=== PATIENT | male | born 1965 | race Caucasian/White ===

== ENCOUNTER → 2018-06-19 15:20 | Outpatient (CLI) | payer BC, SELFPAY ==
[2018-06-19 18:21] LABS: Anion Gap 9 (5-15); BUN 17 mg/dL (7-18); Calcium,Total 8.9 mg/dL (8.5-10.1); Chloride 101 mmol/L (98-107); Cholesterol 184 mg/dL (200); Creatinine, Serum 0.95 mg/dL (0.70-1.30); EST Glomerular Filtration Rate 89 mL/min (>60); Est Glom Filt Rate - Afr Amer 107 mL/min (>60); Glucose 94 mg/dL (74-106); High Density Lipoprotein 57 mg/dL; PSA,Total - Annual Screen 2.68 ng/mL (0.00-4.00); Sodium Level 139 mmol/L (136-145); Triglycerides 100 mg/dL; Very Low Density Lipoprotein 20 mg/dL (5-40)
== END ==
PROVIDERS: Family Provider Family Medicine; PCP Family Medicine; Visit Provider Family Medicine
DX: Z00.00 Encounter for general adult medical examination without abnormal findings (principal)
CPT/HCPCS: 36415; 80048; 80061; 84153; G0103

== ENCOUNTER → 2018-07-27 14:44 | Outpatient (CLI) | payer BC, SELFPAY ==
--- NOTE | 2018-07-27 11:45 | COLBX_PTH ---
PATIENT: RADHA HENNESSY LOC: [facility]IL U#:[id number] AGE/SX: 59/M ROOM: RE07/27/[address]: Dr. Zane Ng MD : 1965 BED: DIS: SPEC #: [id number] RECD: 07/27/18 14:40 STATUS: MERCEDEZ REYa #: [id number] LAKISHA: 07/27/18 11:[address]: Zane Ng DEPT: SURGICAL PATHOLOGY RECD BY: Melvin Bob ENTERED: 07/27/18 14:48 SP TYPE: COLON BX OTHR DR: Dr. Kelly Kerr MD [facility] Tissues: COLON BIOPSY Procedures: Surgery Specimen Level IV HEADER OPERATION: Colonoscopy with biopsy PRE-OP DIAGNOSIS: Screening / polyp TISSUE SUBMITTED: Hepatic flexure polyp biopsy, rule out adenoma MICROSCOPIC DIAGNOSIS Colonic polyp at hepatic flexure, biopsy: Polypoid fragments of benign colonic mucosa. Focal prominent benign appearing lymphoid nodule. See comment. AM:althea 07/28/18 COMMENT Neither hyperplastic nor adenomatous change is identified. Clinical correlation is suggested. MICROSCOPIC DESCRIPTION Slides are reviewed. GROSS DESCRIPTION Received in fixative is one container labeled with the patient's name and designated hepatic flexure. The specimen consists of multiple irregular fragments of light goodman soft tissue that in aggregate measure 0.7 x 0.2 x 0.1 cm. The specimen is totally submitted in one cassette. / SJ:althea 07/27/18 TC:5 CPT: 26047
== END ==
PROVIDERS: Family Provider Family Medicine; PCP Family Medicine; Referring Provider Internal Medicine Gastroenterology; Visit Provider Internal Medicine Gastroenterology
DX: Z12.11 Encounter for screening for malignant neoplasm of colon (principal); K63.5 Polyp of colon
CPT/HCPCS: 88305

== ENCOUNTER 2020-08-25 09:00 | Outpatient (RCR) | payer BC, SELFPAY ==
[2020-08-25] MEDS: COVID-19 VACC, MRNA(PFIZER)/PF 30 MCG/0.3 ML SYRINGE IM (16:00)
[2020-09-15] MEDS: COVID-19 VACC, MRNA(PFIZER)/PF 30 MCG/0.3 ML SYRINGE IM (15:22)
== END 2020-08-25 23:59 ==
LOC: IMMUN 09:00
PROVIDERS: PCP Family Medicine; Visit Provider Family Medicine
DX: Z23 Encounter for immunization (principal)
CPT/HCPCS: 0001A; 0002A; 91300

== ENCOUNTER → 2021-05-30 14:46 | Outpatient (CLI) | payer BC, SELFPAY ==
[2021-05-30 18:17] LABS: PSA,Total - Annual Screen 2.82 ng/mL (0.00-4.00)
== END ==
PROVIDERS: PCP Family Medicine; Referring Provider Family Medicine; Visit Provider Family Medicine
DX: Z00.00 Encounter for general adult medical examination without abnormal findings (principal); Z12.5 Encounter for screening for malignant neoplasm of prostate
CPT/HCPCS: 36415; 84153; G0103

== ENCOUNTER → 2021-06-05 08:34 | Outpatient (CLI) | payer BC, SELFPAY ==
--- NOTE | 2021-06-05 08:43 | RAD_ITS ---
STUDY: X-RAY - ESOPHAGUS (BARIUM SWALLOW) WITH FLUOROSCOPY REASON FOR EXAM: Male, 55 years old. DYSPHAGIA TECHNIQUE: 10 view(s) of the esophagus were obtained following swallowing of barium. FLUOROSCOPY TIME (if supplied): (37 seconds) minutes/seconds COMPARISON: None. FINDINGS: There is no demonstrated esophageal foreign body. There is no demonstrated stricture or mucosal abnormality. Circumferential narrowing at the gastroesophageal junction. The patient ingested a 12 mm tablet of barium. The tablet described at the gastroesophageal junction. Normal visualized aortic arch and descending thoracic aorta. Normal visualized pulmonary parenchyma. Normal visualized osseous structures of the thorax. RAD/Esophagus Single Contrast IMPRESSION: Circumferential narrowing at the gastroesophageal junction trapping of the 12 mm tablet of barium at that site. Correlation with endoscopy is recommended. Electronically Signed: Renard Riddle MD at 9:26 EST , Service support ,
== END ==
PROVIDERS: PCP Family Medicine; Referring Provider Family Medicine; Visit Provider Family Medicine
DX: R13.10 Dysphagia, unspecified (principal)
CPT/HCPCS: 74220

== ENCOUNTER → 2022-06-21 | Outpatient (CLI) | payer OTHER, SELFPAY ==
[2022-06-21 12:42] LABS: PSA,Total- Diagnostic 2.76 ng/mL (0.0-4.0)
== END | disposition home or self-care (01) ==
LOC: MFPLAB 10:36
PROVIDERS: PCP Family Medicine; Visit Provider Family Medicine
DX: Z00.00 Encounter for general adult medical examination without abnormal findings (principal)
CPT/HCPCS: 36415; 84153

== ENCOUNTER → 2023-08-08 | Outpatient (CLI) | payer OTHER, SELFPAY ==
[2023-08-08 12:37] LABS: Anion Gap 3 (5-15); BUN 12 mg/dL (7-18); BUN/Creat Ratio 14.3 RATIO (10-20); Calcium,Total 9.3 mg/dL (8.5-10.1); Chloride 105 mmol/L (98-107); Cholesterol 184 mg/dL (200); Creatinine, Serum 0.84 mg/dL (0.70-1.30); EST Glomerular Filtration Rate 100 mL/min (>60); Est Glom Filt Rate - Afr Amer 120 mL/min (>60); Glucose 108 mg/dL (74-106); High Density Lipoprotein 53 mg/dL; PSA,Total- Diagnostic 3.23 ng/mL (0.0-4.0); Potassium 4.4 mmol/L (3.5-5.1); Sodium Level 139 mmol/L (136-145); Triglycerides 94 mg/dL; Very Low Density Lipoprotein 19 mg/dL (5-40)
== END | disposition home or self-care (01) ==
LOC: MFPLAB 10:28
PROVIDERS: PCP Family Medicine; Visit Provider Family Medicine
DX: Z00.00 Encounter for general adult medical examination without abnormal findings (principal)
CPT/HCPCS: 36415; 80048; 80061; 84153

== ENCOUNTER 2023-12-04 00:48 | Inpatient (IN) | payer OTHER, SELFPAY ==
[2023-12-04] VITALS (15 sets, daily range): BP systolic 98–135; BP diastolic 58–79; PULSE 57–78; RESP 14–18; TEMP 36.2–36.9; O2SAT 95–99; BMI 24.8; BMI 24.1
[2023-12-04 01:02] LABS: Absolute Lymphocyte Count 1.11 X10^3/uL (0.83-4.51); Absolute Neutrophil Count 5.8 X10^3/uL (2.0-7.7); Basophil# 0.06 X10^3/uL; Basophil% 0.8 % (0-1); Eosinophil# 0.05 X10^3/uL; Eosinophils% 0.7 % (0-5); Hematocrit 40.5 % (40-54); Hemoglobin 13.8 g/dL (13.0-16.5); Lymphocyte # 1.11 X10^3/ul (0.83-4.51); Lymphocyte % 14.8 % (19-41); Mean Corp Hgb Conc 34.1 g/dL (32-36); Mean Corpuscular Hgb 29.6 pg (27.0-32.0); Mean Corpuscular Volume 86.7 fL (80-94); Mean Platelet Vol. 9.2 fl (6.2-12.0); Monocyte# 0.46 X10^3/uL; Monocyte% 6.1 % (0-10); NRBC Flagged by Analyzer 0 % (0-5); Neutrophil # 5.77 X10^3/uL (2.7-7.7); Neutrophil % 77.2 % (47-70); Platelet Count 239 K/mm3 (150-450); RBC Distribution Width CV 13.2 % (11.6-14.6); RBC Distribution Width SD 41.2 fl (35.1-43.9); Red Blood Count 4.67 M/mm3 (4.6-6.2); White Blood Count 7.5 K/mm3 (4.4-11.0)
[2023-12-04 01:24] LABS: ALB/GLOB Ratio 1.1 RATIO (0.9-2.4); AST(SGOT) 29 U/L (15-37); Alanine Aminotransfer ALT/SGPT 45 U/L (16-61); Albumin, Serum 3.9 g/dL (3.2-5.0); Alkaline Phosphatase 89 U/L (45-117); Anion Gap 5 (5-15); BUN 16 mg/dL (7-18); BUN/Creat Ratio 16.3 RATIO (10-20); Calcium,Total 8.8 mg/dL (8.5-10.1); Chloride 105 mmol/L (98-107); Creatinine, Serum 0.98 mg/dL (0.70-1.30); EST Glomerular Filtration Rate 83 mL/min (>60); Est Glom Filt Rate - Afr Amer 101 mL/min (>60); Estimated Creatinine Clearance 84.84 ml/min; Globulin 3.4 g/dL (2.2-4.2); Glucose 131 mg/dL (74-106); Potassium 3.3 mmol/L (3.5-5.1); Protein, Total 7.3 g/dL (6.4-8.2); Sodium Level 137 mmol/L (136-145)
--- NOTE | 2023-12-04 01:29 | CT_ITS ---
EXAM: CT ABDOMEN AND PELVIS WITH INTRAVENOUS CONTRAST CLINICAL INDICATION: DIFFUSE ABD PAIN TECHNIQUE: Helically acquired images were obtained of the abdomen and pelvis with intravenous contrast. This CT exam was performed using one or more of the following dose reduction techniques: automated exposure control, adjustment of the mA and/or kV according to patient size, and/or use of iterative reconstruction technique. CONTRAST: 100 cc of Isovue-370 IV. RADIATION DOSE: CTDIvol = 13.20 mGy, DLP = 933.79 mGy-cm COMPARISON: No relevant prior studies available. FINDINGS: LOWER THORAX: Unremarkable. Lung bases are clear. No cardiomegaly. No significant pericardial effusion. ABDOMEN: LIVER: Unremarkable. Homogeneous. No focal mass. GALLBLADDER AND BILE DUCTS: Unremarkable. No calcified gallstones. No gallbladder distention or wall edema. No intra- or extrahepatic biliary ductal dilation. PANCREAS: Unremarkable. No focal cystic or solid mass. SPLEEN: Unremarkable. Normal size without focal cystic or solid mass. ADRENALS: Unremarkable. No nodules. KIDNEYS AND URETERS: Unremarkable. Normal renal size and position. No hydronephrosis. STOMACH AND BOWEL: Multiple dilated mid small bowel loops measuring up to 2.8 cm in diameter. Distal small bowel loops are collapsed. The point of transition is in the lower abdomen just to the left of midline best seen on axial images 58 through 61 of series 2 and coronal images 49 through 57 of series 601 where there is a kink in the small bowel. There is some adjacent cha crossing of vessels in the mesentery. Scattered diverticula without diverticulitis. PELVIS: APPENDIX: No evidence of acute appendicitis. BLADDER: Unremarkable. REPRODUCTIVE: Unremarkable as visualized. No mass. ABDOMEN and PELVIS: INTRAPERITONEAL SPACE: See above. BONES/JOINTS: Unremarkable. No suspicious lytic or blastic abnormality. SOFT TISSUES: Unremarkable. No discrete abdominal or pelvic wall hernia. VASCULATURE: See above. LYMPH NODES: Unremarkable. No enlarged lymph nodes. CT/Abdomen/Pelvis W IV Cont ONLY IMPRESSION: 1. Small bowel obstruction that may be due to adhesions or internal hernia. 2. Scattered diverticula without diverticulitis. Electronically Signed: Ok Trejo MD at 2:55 EDT ,
[2023-12-04] MEDS: Ondansetron 4 MG/2 ML Vial IV ×2 (01:32→08:32)
[2023-12-04] MEDS: Morphine 4 MG/ML Syringe IV (01:34)
[2023-12-04] MEDS: 0.9% Normal Saline (1000mL) 1,000 ML 999 ML IV (01:44)
[2023-12-04] MEDS: Ketorolac 30 MG/ML Syringe IV (02:21)
[2023-12-04 02:34] LABS: Bacteria 0 SEEN /hpf (None Seen); Mucous, Urine 0 SEEN /hpf (<or=2+); Red Blood Cells-Urine 0 SEEN /hpf (0-5)
[2023-12-04 02:36] LABS: Color, Urine Yellow (Yellow); Glucose, Dipstick Normal (Normal); Ketone-Dipstick 15 mg/dl (Negative); Leukocyte Esterase-Dipstick 25 /ul (Negative); Nitrite-Dipstick Negative (Negative); Occult Blood-Urine Negative /ul (Negative); Protein-Dipstick Negative (Negative); Specific Gravity, Urine 1.005 (1.002-1.030); Urine Bilirubin Dipstick Negative (Negative); Urine Clarity Clear (Clear); Urine Urobilinogen Normal (Normal)
[2023-12-04 02:46] LABS: White Blood Cells 0-5 SEEN /hpf (0-5)
[2023-12-04 02:47] LABS: Squamous Epithelial Cells - UA 0-5 SEEN /hpf (0-5)
[2023-12-04] MEDS: HYDROmorphone 1 MG/ML Syringe IV (03:13)
[2023-12-04 04:17] LABS: Lactic Acid 0.8 mmol/L (0.4-1.9)
--- NOTE | 2023-12-04 04:44 | EDS_ITS ---
HPI History of Present Illness Chief Complaint: Abd Pain Informant: patient and spouse/S.O. Narrative Narrative: Patient is a 58-year-old male with past medical history of GERD with stricture. He states that he ate dinner this evening and then a few hours later began with generalized abdominal discomfort. He states this occurred around 9 PM. He states he has been nauseous but without any true bouts of vomiting. He states that there has been no associated loose stool or diarrhea and he denies any known sick contacts. He states that he is taken [id number] medication and given the symptoms time to resolve but they have not done so and therefore he comes in for evaluation [facility] Medical History (Updated 12/04/23 @ 06:[address] Kristopher Mccauley, DO) GERD (gastroesophageal reflux disease) Shingles Home Medications ?Medication ?Instructions ?Recorded ?Last Taken ?Type pantoprazole 40 mg tablet,delayed 40 mg PO DAILY 12/04/23 Unknown History release Allergy/AdvReac Type Severity Reaction Status Date / Time Penicillins Allergy Mild Unknown Verified 12/04/23 00:51 Surgical History no surgical history Social History Smoking Status: Never smoker ROS ROS ED Constitutional Constitutional ED: Denies chills or fever(s) ENT ENT ED: Denies sore throat Cardiovascular Cardiovascular: Denies chest pain Respiratory/Chest Respiratory/Chest: Denies cough or dyspnea Gastrointestinal Gastrointestinal: Reports abdominal pain, constipation and nausea; Denies diarrhea or vomiting Genitourinary Genitourinary ED: Denies dysuria or hematuria Musculoskeletal Musculoskeletal: Reports back pain; Denies myalgias Integumentary Denies rash Neurologic Neurologic: Denies headache(s) Hematologic/Lymphatic Hematologic/Lymphatic: Denies easy bleeding or easy bruising EXAM Physical Exam Const Vital Signs: 12/04/23 00:49 12/04/23 02:48 12/04/23 04:00 Temperature 97.6 F L Temperature Source Temporal Pulse Rate 74 78 78 Respiratory Rate 18 18 16 Blood Pressure 135/79 H 113/67 119/75 Blood Pressure Mean 97 82 89 Pulse Ox 95 97 98 Oxygen Delivery Method Room Air Room Air Room Air Positive well nourished and well developed General Appearance ED: well developed; Negative for pallor HEENT HEENT Narrative: No tongue or lip swelling no oral lesions no airway edema or compromise Eyes PERRL and EOMs intact bilaterally General Eye ED: Negative for scleral icterus Neck supple Chest Wall palpation of chest normal Resp normal respiratory effort and clear to auscultation bilaterally Cardio regular rate and regular rhythm Rate: other Other Details: Heart is regular rate and rhythm without murmurs rubs or gallops Radial and carotid pulses are equal and symmetric GI non-distended GI Narrative: Abdomen is soft and nondistended with hypoactive bowel sounds There is diffuse tenderness to palpation No pulsatile mass or peritoneal signs Auscultation: hypoactive bowel sounds Palpation: soft Back/Spine Back/Spine Narrative: Positive left CVA pain noted Extremity normal to inspection Neuro oriented x3, CN's II-XII intact bilaterally and no sensory deficits noted Sensorium / Orientation: alert Motor Exam: strength 5/5 throughout Psych mental status grossly normal Skin no rashes or lesions noted General Skin Exam: Negative for jaundice or pallor MDM MDM MDM Narrative Medical decision making narrative: Patient arrived to the ER with stable vitals. He had generalized abdominal discomfort with nausea without bouts of vomiting. He stated he was also constipated and denied any known sick contacts. Differential diagnosis is for kidney stone versus biliary colic versus acute cholecystitis versus pancreatitis versus colitis versus small bowel obstruction. Based on the diffuse nature of his pain I elected to perform a CT scan of his abdomen pelvis as well as basic lab. Labs revealed no clinically significant findings but CT scan did show c hanges consistent with a small bowel obstruction. Patient's only risk factor is previous surgical history of a hysterectomy repaired when he was just a young child. This diagnosis all correlates with the fact that he states he has been constipated and not passing any flatus. Secondary to the SBO read General surgery was contacted who evaluated the patient in the ER and they agree about admission at this time for continued treatment but as he is not having bouts of vomiting and he is not distended there is no need for an NG tube History & Record Review Discussion w/independent historian: Patient and Family Lab Data Attestation: I reviewed the patient's lab results. Labs: Laboratory Results - last 24 hr 12/04/23 12/04/23 12/04/23 00:55 02:28 03:38 WBC 7.5 RBC 4.67 Hgb 13.8 Hct 40.5 MCV 86.7 MCH 29.6 MCHC 34.1 RDW Std Deviation 41.2 RDW Coeff of [place] 13.2 Plt Count 239 MPV 9.2 Immature Gran % (Auto) 0.400 Neut % (Auto) 77.2 H Lymph % (Auto) 14.8 L [place] % (Auto) 6.1 Eos % (Auto) 0.7 Baso % (Auto) 0.8 Absolute Neuts (auto) 5.8 Absolute Lymphs (auto) 1.11 Nucleated RBC % 0 Sodium 137 Potassium 3.3 L Chloride 105 Carbon Dioxide 27.0 Anion Gap 5 BUN 16 Creatinine 0.98 Estim Creat Clear Calc 84.84 Est GFR (MDRD) Af Amer 101 Est GFR (MDRD) Non-Af 83 BUN/Creatinine Ratio 16.3 Glucose 131 H Lactic Acid 0.8 Calcium 8.8 Total Bilirubin 0.30 AST 29 ALT 45 Alkaline Phosphatase 89 Total Protein 7.3 Albumin 3.9 Globulin 3.4 Albumin/Globulin Ratio 1.1 Urine Color Yellow Urine Clarity Clear Urine pH 7.0 Ur Specific [place] 1.005 Urine Protein Negative Urine Glucose (UA) Normal Urine Ketones 15 H Urine Occult Blood Negative Urine Nitrite Negative Urine Bilirubin Negative Urine Urobilinogen Normal Ur Leukocyte Esterase 25 H Urine RBC 0 SEEN Urine WBC 0-5 SEEN Ur Squamous Epith Cells 0-5 SEEN Urine Bacteria 0 SEEN Urine Mucus 0 SEEN Radiography Diagnostic Testing: Clinical Impression(s) from Imaging Studies Abdomen/Pelvis CT 12/04/23 01:29 IMPRESSION: 1. Small bowel obstruction that may be due to adhesions or internal hernia. 2. Scattered diverticula without diverticulitis. Electronically Signed: Ok Trejo MD at 2:55 EDT , Management Discussion w/another healthcare provider: Workforce Development Assistant Discharge Plan Dx/Rx/DC Orders Clinical Impression: SBO (small bowel obstruction), Gastroesophageal reflux disease, History of esophageal stricture Disposition Disposition: Acute Care Hospital [facility]
--- NOTE | 2023-12-04 05:43 | HP.PCM_ITS ---
HPI - General General Date of Admission: 12/04/23 Chief Complaint: Acute onset abdominal pain HPI Narrative RADHA HENNESSY, is a 58 M who presents to [facility] with his due to complaints of sudden onset abdominal pain that was diffuse in his distribution and began just about 9 PM last evening. Patient denies any distention, nausea, or vomiting. He does remark that he has been doing a lot of burping and actually attempted to vomit to see if this would alleviate his pain. He denies any previous experience of these symptoms. He shares that he had a normal dinner about 530?eating leftovers for the third night in a row of chicken and pasta. He also states that he had a evening time snack with ice cream at 8 PM. Patient's ER workup notable for laboratories that are relatively unremarkable. CT imaging of the abdomen pelvis, however, as read by radiology is concerning for small bowel obstruction secondary to a transition point in the left lower quadrant that seem to be related to either adhesions or an internal hernia. They also noted crisscrossing of mesenteric vessels. Lactic acid was obtained following this read which was within normal limits at 0.8. By the time I arrived to patient's room he states that his pain is largely gone and the pain medication has been effective. He does comment that he is unsure the last time he passed gas and does not seem to be having bowel function at present. Patient is reasonably healthy, but does state that he had a diagnosis of a shingles outbreak earlier this month. The outbreak occurred over his abdomen and extended onto his back. He was prescribed both prednisone and acyclovir. He states that the symptoms from this outbreak have not been present for the last 3 to 4 days. Patient's only past surgical history included a hernia repair as a young child. He is unable to even give the location for that hernia repair given its remote nature. [facility] Medical History (Updated 12/04/23 @ 04:[address] Kristopher Mccauley, DO) GERD (gastroesophageal reflux disease) Shingles Home Medications ?Medication ?Instructions ?Recorded ?Last Taken ?Type pantoprazole 40 mg tablet,delayed 40 mg PO DAILY 12/04/23 Unknown History release Allergy/AdvReac Type Severity Reaction Status Date / Time Penicillins Allergy Mild Unknown Verified 12/04/23 00:51 Surgical History no surgical history Social History Smoking Status: Never smoker ROS Constitutional Constitutional: Denies anorexia, chills, fever(s) or weight loss Gastrointestinal Gastrointestinal: Reports abdominal pain; Denies nausea or vomiting Vital Signs Vital Signs Vital Signs: 12/04/23 00:49 12/04/23 02:48 12/04/23 04:00 Temperature 97.6 F L Temperature Source Temporal Pulse Rate 74 78 78 Respiratory Rate 18 18 16 Blood Pressure 135/79 H 113/67 119/75 Blood Pressure Mean 97 82 89 Pulse Ox 95 97 98 Oxygen Delivery Method Room Air Room Air Room Air 12/04/23 05:38 Temperature 98.4 F Temperature Source Pulse Rate 74 Respiratory Rate 16 Blood Pressure 118/79 Blood Pressure Mean 92 Pulse Ox 98 Oxygen Delivery Method Weight Weight: 173 lb 4.533 oz Body Mass Index (BMI) 24.8 Physical Exam Const alert, oriented x3 and no apparent distress Constitutional Narrative: Patient appears relaxed General Appearance: cooperative Resp normal respiratory effort GI GI Narrative: No clearly visible scars, nondistended, soft, mild discomfort elicited with palpation of the left lower quadrant?otherwise patient denies any discomfort or tenderness Results Lab / Micro Data 12/04/23 00:55 12/04/23 00:55 Labs: Laboratory Results - last 24 hr 12/04/23 00:55: WBC 7.5, RBC 4.67, Hgb 13.8, Hct 40.5, MCV 86.7, MCH 29.6, MCHC 34.1, RDW Std Deviation 41.2, RDW Coeff of [place] 13.2, Plt Count 239, MPV 9.2, Immature Gran % (Auto) 0.400, Neut % (Auto) 77.2 H, Lymph % (Auto) 14.8 L, [place] % (Auto) 6.1, Eos % (Auto) 0.7, Baso % (Auto) 0.8, Absolute Neuts (auto) 5.8, Absolute Lymphs (auto) 1.11, Nucleated RBC % 0, Sodium 137, Potassium 3.3 L, Chloride 105, Carbon Dioxide 27.0, Anion Gap 5, BUN 16, Creatinine 0.98, Estim Creat Clear Calc 84.84, Est GFR (MDRD) Af Amer 101, Est GFR (MDRD) Non-Af 83, BUN/Creatinine Ratio 16.3, Glucose 131 H, Calcium 8.8, Total Bilirubin 0.30, AST 29, ALT 45, Alkaline Phosphatase 89, Total Protein 7.3, Albumin 3.9, Globulin 3.4, Albumin/Globulin Ratio 1.1 12/04/23 02:28: Urine Color Yellow, Urine Clarity Clear, Urine pH 7.0, Ur Specific [place] 1.005, Urine Protein Negative, Urine Glucose (UA) Normal, Urine Ketones 15 H, Urine Occult Blood Negative, Urine Nitrite Negative, Urine Bilirubin Negative, Urine Urobilinogen Normal, Ur Leukocyte Esterase 25 H, Urine RBC 0 SEEN, Urine WBC 0-5 SEEN, Ur Squamous Epith Cells 0-5 SEEN, Urine Bacteria 0 SEEN, Urine Mucus 0 SEEN 12/04/23 03:38: Lactic Acid 0.8 Imaging Radiology Impression Abdomen/Pelvis CT 12/04/23 01:29 IMPRESSION: 1. Small bowel obstruction that may be due to adhesions or internal hernia. 2. Scattered diverticula without diverticulitis. Electronically Signed: Ok Trejo MD at 2:55 EDT , Assessment & Plan Assessment/Plan (1) SBO (small bowel obstruction): PLAN: Patient is a 58-year-old male who presents with a complaint of acute onset abdominal pain and CT evidence of possible early small bowel obstruction with transition point in left lower quadrant. However, upon my evaluation patient is comfortable and I am unable to elicit much abdominal tenderness at all despite deeper palpation in the area of concern via CT. Patient is not currently reporting flatus or bowel function, but I am suspicious for at least partial spontaneous resolution of his condition. He is denying any nausea or vomiting and has no significant distention of his stomach thus I believe he should be able to directly ingest oral contrast for performance of a small bowel follow- through. I have recommended proceeding with the study to objectively assess for any persistence of an obstruction. I did share with Mr. Hennessy that if a persistent obstruction is found then he would likely require an operation. It is somewhat unusual to find an obstructive process secondary to adhesions given the apparent minimal prior abdominal surgery (albeit any details about this procedure are wanting yet patient seems to recall a left inguinal hernia repair). Patient to be admitted to observational status and held n.p.o. until the small bowel follow-through is completed. Should patient require an operation we will have to consider his recent outbreak of shingles and its potential implications for perioperative steroid and antiviral use. Ok Hogue MD General Surgery Endocrine Surgery Pager: [facility] [address] [place] [address] [address] [place] [address] Office: [phone] Charges/Coding Visit Charges Inpatient E&M: 44777 Init Hosp L2
--- NOTE | 2023-12-04 07:00 | RAD_ITS ---
STUDY: GASTROGRAFIN SMALL BOWEL FOLLOW-THROUGH EXAMINATION. REASON FOR EXAM: Male, 58 years old. f/u SBO -- Films: Immediately post GG, 3h, 6 h TECHNIQUE: The patient ingested a mixture of a Gastrografin and water. COMPARISON: None. FINDINGS: On the 6 hour image, contrast is seen within the entire colon and small bowel loops. RAD/Small Bowel Series Only IMPRESSION: Contrast is seen within the entire colon and small bowel loops by 6 hours. Electronically Signed: Renard Riddle MD at 13:23 EDT ,
[2023-12-04] MEDS: 0.9% Normal Saline (1000mL) 1,000 ML 125 ML IV ×2 (07:33→15:32)
[2023-12-04] MEDS: HYDROmorphone 0.5 MG/0.5 ML SYRINGE IV ×2 (07:36→11:32)
--- NOTE | 2023-12-04 12:50 | RAD_ITS ---
STUDY: X-RAY - ABDOMEN/PELVIS REASON FOR EXAM: Male, 58 years old. ngt placement TECHNIQUE: Single AP view of the abdomen / pelvis. COMPARISON: None. FINDINGS: The tip of the nasogastric tube is in the fundal portion of the stomach. Oral contrast is seen throughout the small bowel loops as well as the colon. The visualized liver, spleen and kidneys are grossly normal in size and morphology. Normal soft tissue structures. Normal visualized osseous structures. RAD/Abdomen Single View (Portable) IMPRESSION: The tip of the orogastric tube is in the fundal portion of the stomach. Electronically Signed: Renard Riddle MD at 13:22 EDT ,
--- NOTE | 2023-12-04 13:07 | EKG12_ITS ---
Test Reason : PRE-OP Blood Pressure : / mmHG Vent. Rate : 069 BPM Atrial Rate : 069 BPM P-R Int : 190 ms QRS Dur : 082 ms QT Int : 392 ms P-R-T Axes : 018 048 019 degrees QTc Int : 420 ms Normal sinus rhythm Normal ECG Confirmed by Ok Peña ([id number]), communications editor SINDHU MTZ ([id number]) on 12/09/2023 8:18:04 AM Referred By: BELINDA Confirmed By:Ok Peña
--- NOTE | 2023-12-04 13:28 | PCM.PN.SRG ---
Subjective Subjective Patient reports that he vomited during a small bowel follow-through and has having pain on the left side of his abdomen. Objective Data Objective Data Vital Signs: Vital Signs Temp Pulse Resp BP Pulse Ox O2 Del Method 98 F 64 16 112/69 95 Room Air 12/04/23 11:28 12/04/23 11:28 12/04/23 11:28 12/04/23 11:28 12/04/23 11:28 12/04/23 11:28 Oxygen Delivery Method Room Air Weight: 173 lb Body Mass Index (BMI) 24.1 Intake & Output: Intake and Output for Last 24 Hours 12/02/23 12/03/23 12/04/23 23:59 23:59 23:59 Intake Total 1000 / 1000 Balance 1000 / 1000 Lab / Micro Data 12/04/23 00:55 12/04/23 00:55 Labs: Laboratory Results - last 24 hr 12/04/23 00:55: WBC 7.5, RBC 4.67, Hgb 13.8, Hct 40.5, MCV 86.7, MCH 29.6, MCHC 34.1, RDW Std Deviation 41.2, RDW Coeff of [place] 13.2, Plt Count 239, MPV 9.2, Immature Gran % (Auto) 0.400, Neut % (Auto) 77.2 H, Lymph % (Auto) 14.8 L, [place] % (Auto) 6.1, Eos % (Auto) 0.7, Baso % (Auto) 0.8, Absolute Neuts (auto) 5.8, Absolute Lymphs (auto) 1.11, Nucleated RBC % 0, Sodium 137, Potassium 3.3 L, Chloride 105, Carbon Dioxide 27.0, Anion Gap 5, BUN 16, Creatinine 0.98, Estim Creat Clear Calc 84.84, Est GFR (MDRD) Af Amer 101, Est GFR (MDRD) Non-Af 83, BUN/Creatinine Ratio 16.3, Glucose 131 H, Calcium 8.8, Total Bilirubin 0.30, AST 29, ALT 45, Alkaline Phosphatase 89, Total Protein 7.3, Albumin 3.9, Globulin 3.4, Albumin/Globulin Ratio 1.1 12/04/23 02:28: Urine Color Yellow, Urine Clarity Clear, Urine pH 7.0, Ur Specific [place] 1.005, Urine Protein Negative, Urine Glucose (UA) Normal, Urine Ketones 15 H, Urine Occult Blood Negative, Urine Nitrite Negative, Urine Bilirubin Negative, Urine Urobilinogen Normal, Ur Leukocyte Esterase 25 H, Urine RBC 0 SEEN, Urine WBC 0-5 SEEN, Ur Squamous Epith Cells 0-5 SEEN, Urine Bacteria 0 SEEN, Urine Mucus 0 SEEN 12/04/23 03:38: Lactic Acid 0.8 Radiography Diagnostic Testing: Radiology Impression Abdomen/Pelvis CT 12/04/23 01:29 IMPRESSION: 1. Small bowel obstruction that may be due to adhesions or internal hernia. 2. Scattered diverticula without diverticulitis. Electronically Signed: Ok Trejo MD at 2:55 EDT , Small Bowel X-Ray 12/04/23 07:00 IMPRESSION: Contrast is seen within the entire colon and small bowel loops by 6 hours. Electronically Signed: Renard Riddle MD at 13:23 EDT , KUB X-Ray 12/04/23 12:50 IMPRESSION: The tip of the orogastric tube is in the fundal portion of the stomach. Electronically Signed: Renard Riddle MD at 13:22 EDT , Physical Exam Const oriented x3 and no apparent distress Resp normal respiratory effort GI soft to palpation Inspection: abdominal distention Palpation: tender Assessment & Plan Assessment/Plan (1) SBO (small bowel obstruction): PLAN: The patient has a small bowel obstruction which is likely partial. The patient has no surgical history that he can remember except for hernia repair as a young child. The patient has never had a bowel obstruction in the past. I reviewed the patient's CT scan which does show a small kink in the bowel in the left side of the abdomen. The patient had small bowel follow-through initiated this morning but vomited shortly after initiating it. The contrast that did stay in went through to the colon but with how much she was burping he wanted evaluated by me and so they asked for second opinion. The patient's contrast did make it through to the colon after 6 hours of small bowel follow-through but after the NG was placed about 600 cc was returned. It appears bilious. The patient reported decrease in discomfort immediately after NG was placed. I went up and discussed this with him again and discussed that his KUB showed that the contrast made to his colon but he is still concerned for the cause of this bowel obstruction and he would like evaluation and laparoscopy to evaluate. I discussed this with him in detail as well as the risks of bleeding, infection, injury to underlying organs. I also discussed the risks of having to convert to open surgery or perform bowel resection. I also believe that sigmoid colon looks of mildly thickened and may be the cause of the inflammation causing the scar tissue and I did explain that if there is any injury to the inflamed colon he would need colostomy which would be temporary. I explained this is was a very low chance but still a possibility. Patient understands. Patient is in agreement and would like to proceed with exploratory laparoscopy. Jorge L Deras MD Pager: [facility] [address] [place] [address] [address] [place] [address] Office:
--- NOTE | 2023-12-04 17:31 | NURSING ---
pt to surgery
--- NOTE | 2023-12-04 17:37 | PCM.PRE.AN2 ---
ASA Classification* ASA Classification ASA Classification: 2 and E Assessment & Plan Anesthesia* Anesthesia Assessment Anesthesia Assessment: Discussed sedation and/or anesthesia options, risks, benefits, and alternatives with patient/parents/legal guardian/POA. Questions invited. The patient/parents/legal guardian/POA seems to understand and agrees to proceed with anesthesia plan. Reviewed the physical assessment, medical history, allergy history and patient home medications list prior to surgery/procedure/anesthetic and documented any changes. Performed airway and anesthesia risk assessments. Anesthesia Type Anesthesia Type: General (see written pre anesthesia record for full assessment) Pre-Assessment Diagnosis/Proposed Procedure Planned Operative Procedure(s): exp lap Anesthesia History Anesthesia History - pricing analyst: Anesthesia History - pricing analyst Hx Hospitalization Any Problems With Anesthesia No 12/04/23 09:03 Cholinesterase deficiency No 12/04/23 09:03 You/Your Family Experience No 12/04/23 09:03 fever (hyperthermia) with Relationship Recent Exposure to Contagious No 12/04/23 09:03 Disease Does patient have nerve No 12/04/23 09:03 stimulator Patient instructed to have No 12/04/23 09:03 device shut off --Does patient have Pacemaker No 12/04/23 13:56 or ICD? When Was Last Pacemaker Check QUESTION #4 FULL TEXT: You/Your Family Experience fever (hyperthermia) with Anesthesia Last Oral Intake Last Oral intake: Last Oral Intake NPO since 00:00 12/04/23 13:56 Meds taken in AM with sips of No 12/04/23 13:56 water? Meds patient instructed to take am of surgery PONV PONV - pricing analyst: PONV - pricing analyst Female HX of Motion Sickness HX of N/V After Surgery Non-Smoker Duration of Surgery greater than 60 minutes Number of Risk Factors PONV Score Height & Weight Height & Weight: Anesthesia: Height & Weight Height 5 ft 11 in 12/04/23 13:56 Weight: 78.471 kg 12/04/23 13:56 Body Mass Index (BMI) 24.1 12/04/23 13:56 Respiratory Assessment Respiratory Assessment - pricing analyst: Respiratory Tract Infection Hx - pricing analyst Hx Respiratory Tract Infection No 12/04/23 09:03 STOP Sleep Apnea STOP Sleep Apnea - pricing analyst: STOP Sleep Apnea - pricing analyst Hx Hypertension Yes 12/04/23 07:26 Hx Sleep Apnea No 12/04/23 07:26 CPAP BIPAP Do you snore loudly (louder No 12/04/23 07:26 than talking or can be heard Do you often feel tired/ No 12/04/23 07:26 fatigued/ sleepy during daytime? Has anyone observed you stop No 12/04/23 07:26 breathing during sleep? STOP Results Negative 12/04/23 07:26 QUESTION #5 FULL TEXT : Do you snore loudly (louder than talking or can be heard through closed doors)? 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 Specify any problems Hx of Preganancy in last 3 N/A 12/04/23 07:26 Months Nurse Filling Out Transfusion TWOLF 12/04/23 07:26 & Questions: Date: 12/04/23 12/04/23 07:26 Time: 07:28 12/04/23 07:26 Patient unable to answer at this time (ie. confused, unrespo /Reproduction History /Reproductive History - pricing analyst: /Reproductive Hx- pricing analyst Hx Now No 12/04/23 09:03 Gestational Age (in weeks): EDC: Hx Hx Para Hx Section SAB No 12/04/23 09:03 Active Medications Active Medications: Current Medications Generic Name Dose Route Start Last Admin Trade Name Freq PRN Reason Stop Dose Admin Hydromorphone HCl 0.5 mg 12/04/23 05:12 12/04/23 11:32 Hydromorphone 0.5 Mg/0.5 Ml Syringe IV 0.5 mg Q4H PRN PRN Administration Pain Score 6-10 Sodium Chloride 1,000 mls @ 125 mls/hr 12/04/23 05:15 12/04/23 17:35 IV 0 mls/hr .Q8H BOWEN Infusion Pantoprazole Sodium 40 mg/ 110 mls @ 330 mls/hr 12/05/23 10:00 Sodium Chloride IV Q24 BOWEN Sodium Chloride 250 mls @ 15 mls/hr 12/04/23 07:31 IV .[id number] PRN Additional IVPB Infusion Sodium Chloride 250 mls @ 15 mls/hr 12/04/23 07:31 IV .[id number] PRN Saline Flush Ondansetron HCl 4 mg 12/04/23 05:12 12/04/23 08:32 Ondansetron 4 Mg/2 Ml Vial IV 4 mg Q6H PRN PRN Administration NAUSEA/VOMITING Sodium Chloride 10 - 40 ml 12/04/23 07:31 0.9% Saline Lock 10 Ml Syringe IV UD PRN SALINE FLUSH Anesthesia Focused Assessment* Temperature: 98 F Pulse Rate: 74 Blood Pressure: 116/71 Respiratory Rate: 16 Pulse Ox: 95 Airway Assessment Mouth opens: >3 cm Mallampati Score: II Focused Labs Anesthesia Preop lab: CBC WBC 7.5 K/mm3 (4.4-11.0) 12/04/23 00:55 RBC 4.67 M/mm3 (4.6-6.2) 12/04/23 00:55 Hgb 13.8 g/dL (13.0-16.5) 12/04/23 00:55 Hct 40.5 % (40-54) 12/04/23 00:55 Plt Count 239 K/mm3 (150-450) 12/04/23 00:55 CHEMISTRY Potassium 3.3 mmol/L (3.5-5.1) L 12/04/23 00:55 Sodium 137 mmol/L (136-145) 12/04/23 00:55 BUN 16 mg/dL (7-18) 12/04/23 00:55 Creatinine 0.98 mg/dL (0.70-1.30) 12/04/23 00:55 Glucose 131 mg/dL (74-106) H 12/04/23 00:55 COAG Review of Systems (Anesthesia) ROS Narrative System reviewed and no additional complaints, except as documented. [facility] Medical History GERD (gastroesophageal reflux disease) Shingles Home Medications ?Medication ?Instructions ?Recorded ?Last Taken ?Type pantoprazole 40 mg tablet,delayed 40 mg PO DAILY 12/04/23 Unknown History release Allergy/AdvReac Type Severity Reaction Status Date / Time Penicillins Allergy Mild Unknown Verified 12/04/23 00:51 Surgical History no surgical history Social History Smoking Status: Never smoker
[2023-12-04] MEDS: Clindamycin 900 MG/50 ML BAG 75 MG IV (18:25)
[2023-12-04] MEDS: Bupivacaine Mpf 0.5% 30 ML VIAL (18:46)
--- NOTE | 2023-12-04 19:35 | PCM.POST.ANE ---
Anesthesia: Postop Eval I Current Vital Signs Temperature: 97.3 F Pulse Rate: 61 Blood Pressure: 122/78 Respiratory Rate: 17 Pulse Ox: 98 Oxygen Delivery Method: Room Air Assessment Airway patent: Yes Spontaneous unlabored respirations: Yes Mental status: Awake nausea: No Vomiting: No Anesthesia Complication: No Fluid Hydration Crystalloid volume administer (ml): 700 Total IV fluid infused: 700 Progress Note Anesthesia document: Postop Eval 1 completed: Yes
--- NOTE | 2023-12-04 19:36 | POSTOPAN2_ITS ---
Anesthesia Postop Eval I Sum Postop Eval Completion status Anesthesia document: Postop Eval 1 completed: Yes Anesthesia Postop Eval I Summary Anesthesia Postop Eval I Summary: Anesthesia Postop Eval I: Assessment Summary Airway patent Yes 12/04/23 19:36 BUTTER [email or web address] Spontaneous unlabored Yes 12/04/23 19:36 BUTTER [email or web address] respirations Mental status Awake 12/04/23 19:36 BUTTER [email or web address] nausea No 12/04/23 19:36 BUTTER [email or web address].[email or web address] Vomiting No 12/04/23 19:36 BUTTER [email or web address] Anesthesia Postop Eval I: Fluid Summary Crystalloid volume administer 700 12/04/23 19:36 BUTTER [email or web address].[email or web address] (ml) Colloids volume administered ( ml) Blood Product volume administered (ml) Total IV fluid infused 700 12/04/23 19:36 BUTTER [email or web address].JCOTE Anesthesia Postop Eval I: Summary Notes Anesthesia Complication No 12/04/23 19:36 BUTTER [email or web address].JCOTE Anesthesia Complication Comment: Post-operative progress note Anesthesia: Postop Eval II Evaluation Mental status: Awake Pain Level: 0 nausea: No Vomiting: No Complications Anesthesia Complication: No
--- NOTE | 2023-12-04 19:36 | PCM.POSTANE2 ---
Anesthesia Postop Eval I Sum Postop Eval Completion status Anesthesia document: Postop Eval 1 completed: Yes Anesthesia Postop Eval I Summary Anesthesia Postop Eval I Summary: Anesthesia Postop Eval I: Assessment Summary Airway patent Yes 12/04/23 19:36 MARKETING PROGRAMS [email or web address].[email or web address] Spontaneous unlabored Yes 12/04/23 19:36 MARKETING PROGRAMS SPECIALIST.JCOTE respirations Mental status Awake 12/04/23 19:36 MARKETING PROGRAMS SPECIALIST.JCOTE nausea No 12/04/23 19:36 MARKETING PROGRAMS SPECIALIST.JCOTE Vomiting No 12/04/23 19:36 MARKETING PROGRAMS SPECIALIST.JCOTE Anesthesia Postop Eval I: Fluid Summary Crystalloid volume administer 700 12/04/23 19:36 MARKETING PROGRAMS [email or web address].JCOTE (ml) Colloids volume administered ( ml) Blood Product volume administered (ml) Total IV fluid infused 700 12/04/23 19:36 MARKETING PROGRAMS SPECIALIST.JCOTE Anesthesia Postop Eval I: Summary Notes Anesthesia Complication No 12/04/23 19:36 MARKETING PROGRAMS SPECIALIST.JCOTE Anesthesia Complication Comment: Post-operative progress note Anesthesia: Postop Eval II Evaluation Mental status: Awake Pain Level: 0 nausea: No Vomiting: No Complications Anesthesia Complication: No
--- NOTE | 2023-12-04 19:56 | PCM.OPRPT ---
Report of Operation Date of Procedure: 12/04/23 Pre-Operative Diagnosis: Small bowel obstruction Post-Operative Diagnosis: Small bowel obstruction Surgery/Procedure Performed:: Exploratory laparoscopy with takedown of adhesions and release of small bowel obstruction Type of Anesthesia: General/Regional Specimen's removed: None Estimated Blood Loss (mL): 10 Description of Procedure: Patient was brought back to the operating room and general anesthesia was induced. The abdomen was prepped and draped in usual sterile fashion. Midline incision was made superior to the umbilicus and deepened to the fascia. Fascia was elevated and incised. After finger sweep a port was placed into the abdomen was insufflated 15 mmHg. Under direct visualization a suprapubic 5 mm port was placed as well as a right lower quadrant 5 mm port. Using atraumatic graspers the bowel was run. There was an adhesion from a piece of fat to another segment of mesentery that was causing a band that was causing the bowel obstruction. The band was sharply lysed with scissors releasing the bowel. The bowel was then run from the ligament of Treitz to the ileocecal valve. There were no other adhesions or signs of Obstruction or ischemia. Next the ports were removed from the abdomen. There was some mild bleeding from a right lower quadrant port site. This was cauterized using lecture cautery. Next the air was allowed to bleeding from the abdomen and the midline port was removed. The midline fascia was closed with a [id number] 0 Vicryl suture. Next all the incisions were injected with local anesthetic and closed with interrupted 4-0 Monocryl sutures and Steri-Strips and bandages. Patient was awoken and taken to PACU in stable condition. NG was removed at the end the case. Patient tolerated the procedure well. Admit VTE Documentation VTE Mechan Device Prophylaxis: SCD's
[2023-12-04] MEDS: 0.9% Normal Saline (1000mL) 1,000 ML 80 ML IV (20:14)
--- NOTE | 2023-12-04 23:10 | POSTOPAN2_ITS ---
Anesthesia Postop Eval I Sum Postop Eval Completion status Anesthesia document: Postop Eval 1 completed: Yes Anesthesia Postop Eval I Summary Anesthesia Postop Eval I Summary: Anesthesia Postop Eval I: Assessment Summary Airway patent Yes 12/04/23 19:36 CULLED FRUIT [email or web address] Spontaneous unlabored Yes 12/04/23 19:36 CULLED FRUIT [email or web address].[email or web address] respirations Mental status Awake 12/04/23 19:36 CULLED FRUIT [email or web address] nausea No 12/04/23 19:36 CULLED FRUIT [email or web address].[email or web address] Vomiting No 12/04/23 19:36 CULLED FRUIT [email or web address].[email or web address] Anesthesia Postop Eval I: Fluid Summary Crystalloid volume administer 700 12/04/23 19:36 CULLED FRUIT [email or web address].[email or web address] (ml) Colloids volume administered ( ml) Blood Product volume administered (ml) Total IV fluid infused 700 12/04/23 19:36 CULLED FRUIT [email or web address].JCOTE Anesthesia Postop Eval I: Summary Notes Anesthesia Complication No 12/04/23 19:36 CULLED FRUIT [email or web address].[email or web address] Anesthesia Complication Comment: Post-operative progress note Anesthesia: Postop Eval II Evaluation Mental status: Awake Pain Level: 0 nausea: No Vomiting: No Complications Anesthesia Complication: No
--- NOTE | 2023-12-04 23:10 | PCM.POSTANE2 ---
Anesthesia Postop Eval I Sum Postop Eval Completion status Anesthesia document: Postop Eval 1 completed: Yes Anesthesia Postop Eval I Summary Anesthesia Postop Eval I Summary: Anesthesia Postop Eval I: Assessment Summary Airway patent Yes 12/04/23 19:36 [email or web address] Spontaneous unlabored Yes 12/04/23 19:36 [email or web address] respirations Mental status Awake 12/04/23 19:36 [email or web address] nausea No 12/04/23 19:36 [email or web address].[email or web address] Vomiting No 12/04/23 19:36 [email or web address] Anesthesia Postop Eval I: Fluid Summary Crystalloid volume administer 700 12/04/23 19:36 [email or web address] (ml) Colloids volume administered ( ml) Blood Product volume administered (ml) Total IV fluid infused 700 12/04/23 19:36 [email or web address] Anesthesia Postop Eval I: Summary Notes Anesthesia Complication No 12/04/23 19:36 [email or web address].JCOTE Anesthesia Complication Comment: Post-operative progress note Anesthesia: Postop Eval II Evaluation Mental status: Awake Pain Level: 0 nausea: No Vomiting: No Complications Anesthesia Complication: No
[2023-12-05 00:14] VITALS: BP 98/68; PULSE 64; RESP 16; TEMP 36.8; O2SAT 99
[2023-12-05 04:19] VITALS: BP 99/64; PULSE 61; RESP 16; TEMP 36.6; O2SAT 98
[2023-12-05] MEDS: 0.9% Normal Saline (1000mL) 1,000 ML 80 ML IV (06:17)
[2023-12-05 07:37] LABS: Absolute Lymphocyte Count 1.57 X10^3/uL (0.83-4.51); Absolute Neutrophil Count 3.2 X10^3/uL (2.0-7.7); Basophil# 0.04 X10^3/uL; Basophil% 0.7 % (0-1); Eosinophil# 0.14 X10^3/uL; Eosinophils% 2.5 % (0-5); Hematocrit 36.7 % (40-54); Hemoglobin 11.8 g/dL (13.0-16.5); Lymphocyte # 1.57 X10^3/ul (0.83-4.51); Lymphocyte % 28.2 % (19-41); Mean Corp Hgb Conc 32.2 g/dL (32-36); Mean Corpuscular Hgb 29.2 pg (27.0-32.0); Mean Corpuscular Volume 90.8 fL (80-94); Mean Platelet Vol. 9.1 fl (6.2-12.0); Monocyte# 0.57 X10^3/uL; Monocyte% 10.2 % (0-10); NRBC Flagged by Analyzer 0 % (0-5); Neutrophil # 3.24 X10^3/uL (2.7-7.7); Neutrophil % 58.2 % (47-70); Platelet Count 198 K/mm3 (150-450); RBC Distribution Width CV 13.6 % (11.6-14.6); RBC Distribution Width SD 44.9 fl (35.1-43.9); Red Blood Count 4.04 M/mm3 (4.6-6.2); White Blood Count 5.6 K/mm3 (4.4-11.0)
[2023-12-05 08:06] LABS: Anion Gap 3 (5-15); BUN 13 mg/dL (7-18); BUN/Creat Ratio 17.7 RATIO (10-20); Chloride 112 mmol/L (98-107); Creatinine, Serum 0.73 mg/dL (0.70-1.30); EST Glomerular Filtration Rate 117 mL/min (>60); Est Glom Filt Rate - Afr Amer 141 mL/min (>60); Estimated Creatinine Clearance 117.48 ml/min; Glucose 88 mg/dL (74-106); Sodium Level 142 mmol/L (136-145)
[2023-12-05] MEDS: Pantoprazole Sodium 40 MG in 0.9% Normal Saline (100mL MB+) 100 ML 330 MG IV (08:10)
[2023-12-05 08:12] VITALS: BP 110/62; PULSE 63; RESP 16; TEMP 37; O2SAT 99
--- NOTE | 2023-12-05 08:56 | PN.SURG_ITS ---
Subjective Subjective Patient reports that he is passing flatus and he is comfortable with minimal abdominal pain. Denies nausea or vomiting. Objective Data Objective Data Vital Signs: Vital Signs Temp Pulse Resp BP Pulse Ox O2 Del Method 98.6 F 63 16 110/62 99 Room Air 12/05/23 08:12 12/05/23 08:12 12/05/23 08:12 12/05/23 08:12 12/05/23 08:12 12/05/23 08:12 Oxygen Delivery Method Room Air Weight: 173 lb Body Mass Index (BMI) 24.1 Intake & Output: Intake and Output for Last 24 Hours 12/03/23 12/04/23 12/05/23 23:59 23:59 23:59 Intake Total 2334.17 / 2334.17 952 / 952 Output Total 600 / 600 Balance 1734.17 / 1734.17 952 / 952 Lab / Micro Data 12/05/23 07:19 12/05/23 07:19 Labs: Laboratory Results - last 24 hr 12/05/23 07:19: WBC 5.6, RBC 4.04 L, Hgb 11.8 L, Hct 36.7 L, MCV 90.8, MCH 29.2, MCHC 32.2 D, RDW Std Deviation 44.9 H, RDW Coeff of [place] 13.6, Plt Count 198, MPV 9.1, Immature Gran % (Auto) 0.200, Neut % (Auto) 58.2, Lymph % (Auto) 28.2, [place] % (Auto) 10.2 H, Eos % (Auto) 2.5, Baso % (Auto) 0.7, Absolute Neuts (auto) 3.2, Absolute Lymphs (auto) 1.57, Nucleated RBC % 0, Sodium 142, Potassium 4.0, Chloride 112 H, Carbon Dioxide 27.0, Anion Gap 3 L, BUN 13, Creatinine 0.73, Estim Creat Clear Calc 117.48, Est GFR (MDRD) Af Amer 141, Est GFR (MDRD) Non-Af 117, BUN/Creatinine Ratio 17.7, Glucose 88, Calcium 8.0 L Radiography Diagnostic Testing: Radiology Impression Small Bowel X-Ray 12/04/23 07:00 IMPRESSION: Contrast is seen within the entire colon and small bowel loops by 6 hours. Electronically Signed: Renard Riddle MD at 13:23 EDT , KUB X-Ray 12/04/23 12:50 IMPRESSION: The tip of the orogastric tube is in the fundal portion of the stomach. Electronically Signed: Renard Riddle MD at 13:22 EDT , Physical Exam Const oriented x3 and no apparent distress Resp normal respiratory effort GI soft to palpation and non-tender Inspection: Negative for abdominal distention Assessment & Plan Assessment/Plan (1) SBO (small bowel obstruction): PLAN: Patient was taken for exploratory laparoscopy yesterday and a band was lysed releasing a small bowel obstruction. He is doing well this morning and his NG was removed after surgery. He reports passing flatus and he had 2 bowel movements. I will start him on a diet and if he tolerates this I will discharge him home. Jorge L Deras MD Pager: [facility] [address] [place] [address], [address] [place] [phone] Office:
--- NOTE | 2023-12-05 08:59 | DS.PCM_ITS ---
Providers Date of Admission: 12/04/23 Primary Care Physician: Dr. Kelly Kerr MD Reason For Visit: BOWEL OBSTRUCTION Diagnosis Discharge Diagnosis (1) SBO (small bowel obstruction): Status: Acute Code(s): K56.609 - Unspecified intestinal obstruction, unspecified as to partial versus complete obstruction Plan: Patient was taken for exploratory laparoscopy yesterday and a band was lysed releasing a small bowel obstruction. He is doing well this morning and his NG was removed after surgery. He reports passing flatus and he had 2 bowel movements. I will start him on a diet and if he tolerates this I will discharge him home. Jorge L Deras MD Pager: [facility] [address] [place] [address], [address] [place] [address] Office: Medications at Discharge Home Medications pantoprazole 40 mg tablet,delayed release 40 mg PO DAILY 12/04/23 Hospital Course Procedures None Summary of Care Provided Hospital Course: Patient presented with abdominal pain and nausea and vomiting. He was admitted and a small bowel follow-through was performed. The small bowel follow-through did reach the colon after 6 hours but the patient was still having discomfort and did vomit. I took the patient for exploratory laparoscopy later that day after placing an NG tube. I did find a band and it was lysed releasing a small bowel obstruction. He was comfortable the following day and will be discharged home once tolerating diet. Weight / BMI Weight Weight: 173 lb Body Mass Index (BMI) 24.1 ABG / Lab / Microbiology Data 12/05/23 07:19 12/05/23 07:19 Laboratory: Laboratory Results - last 24 hr 12/05/23 07:19: WBC 5.6, RBC 4.04 L, Hgb 11.8 L, Hct 36.7 L, MCV 90.8, MCH 29.2, MCHC 32.2 D, RDW Std Deviation 44.9 H, RDW Coeff of [place] 13.6, Plt Count 198, MPV 9.1, Immature Gran % (Auto) 0.200, Neut % (Auto) 58.2, Lymph % (Auto) 28.2, [place] % (Auto) 10.2 H, Eos % (Auto) 2.5, Baso % (Auto) 0.7, Absolute Neuts (auto) 3.2, Absolute Lymphs (auto) 1.57, Nucleated RBC % 0, Sodium 142, Potassium 4.0, Chloride 112 H, Carbon Dioxide 27.0, Anion Gap 3 L, BUN 13, Creatinine 0.73, Estim Creat Clear Calc 117.48, Est GFR (MDRD) Af Amer 141, Est GFR (MDRD) Non-Af 117, BUN/Creatinine Ratio 17.7, Glucose 88, Calcium 8.0 L Radiography Diagnostic Testing: Radiology Impression Small Bowel X-Ray 12/04/23 07:00 IMPRESSION: Contrast is seen within the entire colon and small bowel loops by 6 hours. Electronically Signed: Renard Riddle MD at 13:23 EDT , KUB X-Ray 12/04/23 12:50 IMPRESSION: The tip of the orogastric tube is in the fundal portion of the stomach. Electronically Signed: Renard Riddle MD at 13:22 EDT , D/C Instructions Discharge Diet: Light diet - advance as tolerated Discharge Activity: May Drive (after 2-3 days and when off narcotics) and May Shower Lifting Restrictions: 15 lbs for 2 weeks Call your doctor if your incision/area has: Continuous Slow Oozing, Sudden Increased Bleeding, Increased Pain/ Swelling, Increased Redness, Foul Smelling Discharge and Swelling at the incision site Call your doctor if you observe: Fever of 101 or Higher Change Dressing in: 1 day (Remove clear bandages tomorrow, remove Steri-Strips in 7 to 10 days, may shower over both) Cleanse incision/area with: Soap & Water Additional Dressing/Incision Instructions: Alternate ibuprofen and Tylenol for pain control, oxycodone for breakthrough pain. Please Follow Up With: Jorge L Deras MD When: Please call to schedule 2 week follow up appointment. [phone] Meaningful Use Info Meaningful Use Meaningful Use Diagnoses (Choose all that apply): None applicable Ischemic Stroke Statin Dosing Therapy Reference: STATIN DOSE THERAPY REFERENCE: * Patients > 75 years receive moderate or high dose statin therapy. * Patients 75 years or YOUNGER should receive HIGH intensity statin dose unless contraindicated. You will be required to document reason for non-treatment if statin daily dose does not meet guidelines. HIGH DOSE STATIN THERAPY DAILY Atorvastatin > than or = to 40 mg Rosuvastatin > than or = to 20 mg Amlodipine + Atorvastatin > than or = to 2.5/40 mg Ezetimibe + Simvastatin 10/80 mg Simvastatin 80mg Discharge Plan Admission Admit Date/Time: 12/04/23 16:31 Attending Provider: Jorge L Deras Primary Care Provider: Kelly Kerr Consulting Providers: [place] Discharge Orders/Prescriptions Prescriptions: Continued pantoprazole 40 mg tablet,delayed release (DR/EC) 40 mg PO DAILY Referrals / Follow Up: Kelly Kerr MD [Primary Care Provider] -
--- NOTE | 2023-12-05 11:30 | PHA.DC_ITS ---
Pharmacy [facility] has performed discharge medication reconciliation and counseling for this patient. The patient's discharge medication list was reviewed for discrepancies and discrepancies were resolved. The patient was counseled on the following discharge medications and changes in medications for homegoing were reviewed. The Reason for Use, instructions for use, and potential side effects were reviewed for all new medications. The patient's questions regarding all of their medications were answered. 1. Acetaminophen 650 mg PO Q4H PRN pain 2. Oxycodone 5 -10 mg PO Q4H PRN pain The patient was able to verbally demonstrate an understanding of their discharge medications. The patient was counselled on new medications by accredited pharmacy technician Beto. Medications at Discharge Home Medications pantoprazole 40 mg tablet,delayed release 40 mg PO DAILY 12/04/23 acetaminophen 325 mg tablet 650 mg (2 x 325 mg) PO Q4H PRN PRN Pain 1-10 Or Fever #0 tabs 12/05/23 oxycodone 5 mg tablet 5 - 10 mg (1 - 2 x 5 mg) PO Q4H PRN PRN Pain Score 4-10 5 days #14 tabs 12/05/23
--- NOTE | 2023-12-05 12:13 | CASEMGMT ---
DYLAN KEN Assessment Face to Face with patient for initial transition planning/care coordination assessment. DYLAN KEN introduced self and role at [facility], pt voices understanding. Pt is A&Ox4 and is resting comfortably in bed and is calm. Care providers, pharmacy, and demographics verified. Admitting dx: Bowel Obstruction PCP: Kelly Kerr Specialists: Dr. Ng (GI) Preferred Pharmacy: [facility] Insurance: [employer] Prescription Benefit: Yes LNOK: Heidi Shine (W) Living Arrangements: Pt lives with his in a two story home with one step to enter ADLs/IADLs: Ind Transportation: Self, DME: Denies uses or needs HHC/SNF: Denies history or needs Pt?s goal: Home no needs Plan: Home no needs. Pt has a DC order in and states that he feels safe returning home with no additional needs at this time. Altaf Hui RN, CM
== END 2023-12-05 11:44 | disposition home or self-care (01) | DRG 337 ==
LOC: ED 04:44 → MS3 05:38
PROVIDERS: Physician Assistant; Admitting Provider Surgery; Emergency Provider Emergency Medicine; PCP Family Medicine; Visit Provider Surgery
PROC: 0DN84ZZ Release Small Intestine, Percutaneous Endoscopic Approach (ICD-10-PCS; CPT 49320; principal; 2023-12-04 15:45)
DX: K56.51 Intestinal adhesions [bands], with partial obstruction (principal); K21.9 Gastro-esophageal reflux disease without esophagitis
CPT/HCPCS: 74018; 74177; 74250; 80048; 80053; 81001; 83605; 85025; 93005; 99284; J7030; Q9967; A4216; J2405

== ENCOUNTER → 2024-08-11 | Outpatient (CLI) | payer OTHER, SELFPAY ==
[2024-08-11 11:00] LABS: Anion Gap 10 (5-15); BUN 15 mg/dL (4-19); BUN/Creat Ratio 18.4 RATIO (10-20); Carbon Dioxide 25.6 mmol/L (22.0-29.0); Chloride 103 mmol/L (96-108); Cholesterol 202 mg/dL (<=200); Creatinine, Serum 0.8 mg/dL (0.8-1.3); EST Glomerular Filtration Rate 102 (>60); Glucose 101 mg/dL (70-99); High Density Lipoprotein 54 mg/dL; Low Density Lipoprotein Calc. 135 mg/dL; PSA,Total - Annual Screen 3.15 ng/mL (0.02-4.00); Potassium 4.4 mmol/L (3.3-5.1); Sodium Level 138 mmol/L (133-145); Triglycerides 69 mg/dL; Very Low Density Lipoprotein 14 mg/dL (5-40); cholesterol:hdl ratio screen 3.76
== END | disposition home or self-care (01) ==
LOC: MTLAB 07:03
PROVIDERS: PCP Family Medicine
DX: Z00.00 Encounter for general adult medical examination without abnormal findings (principal)
CPT/HCPCS: 36415; 80048; 80061; 84153; G0103